=== PATIENT | male | born 1985 | race Caucasian/White ===

== ENCOUNTER 2019-07-06 08:10 | Emergency (ER) | payer OTHER ==
[~2019-07-06] VITALS: Ht 182.9 cm; Wt 104.3 kg
[2019-07-06] MEDS ORDERED: TRAMADOL 50 MG50 MG PO (08:59)
[2019-07-06] MEDS ORDERED: NAPROSYN500 MG PO (08:59)
[2019-07-06 10:23] VITALS: BP 135/80
== END 2019-07-06 10:23 | disposition home or self-care (01) ==
LOC: ER 08:10
DX: S13.4XXA Sprain of ligaments of cervical spine, initial encounter (principal); V89.2XXA Person injured in unspecified motor-vehicle accident, traffic, initial encounter; Y93.89 Activity, other specified; Y92.411 Interstate highway as the place of occurrence of the external cause; Y99.8 Other external cause status